=== PATIENT | female | born 1985 | race Caucasian/White ===

== ENCOUNTER 2016-04-02 11:23 | Emergency (ER) | payer OTHER ==
[2016-04-02 12:53] VITALS: BP 137/82
[2016-04-02] MEDS ORDERED: Tetan/Diph/Pertus SYR(Tdap)* 0.5 ML SYR(BOOSTRIX) use SYR IM ONE (13:51)
--- NOTE | 2016-04-02 13:51 | UC ---
Laceration HPI - HPI Summary HPI Summary: 1. WAS UP ON A STOOL CUTTING THE TOP OFF [employer] PLANTS WITH A RAZOR BLADE THIS MORNING WHEN SHE SLIPPED AND LACERATED HER LEFT FOREARM. NOT SURE OF DATE OF LAST TETANUS. 2. C/O THICK, WHITE, MALODOROUS VAGINAL D/C FOR PAST 3-4 YEARS. TOOK DIFLUCAN IN THE PAST WHICH HELPED. DENIES ANY CURRENT SEXUAL ACTIVITY. NO ABDOMINAL PAIN OR URINARY SX. NO FEVER, N/V/D. - History Of Current Complaint Chief Complaint: UCLaceration Stated Complaint: LEFT ARM LACERATION Time Seen by Provider: 04/02/16 13:33 Hx Obtained From: Patient Laceration Location: Arm - LEFT Mechanism Of Injury: Sharp Trauma Onset/Duration: Sudden Onset, Lasting Hours Severity: Mild Pain Intensity: 0 Pain Scale Used: 0-10 Numeric Aggravating Factors: Nothing Related History: Dominant Hand Right - Allergies/Home Medications Allergies/Adverse Reactions: Allergies Allergy/AdvReac Type Severity Reaction Status Date / Time antipsychotics Allergy See Comment Uncoded 12/18/15 09:22 PMH/Surg Hx/FS Hx/Imm Hx Endocrine History Of: Denies: Diabetes, Thyroid Disease, Hyperthyroidism, Hypothyroidism, Dyslipidemia Cardiovascular History Of: Denies: Cardiac Disorders, Hypertension, Pacemaker/ICD, Myocardial Infarction , Congestive Heart Failure, Atrial Fibrillation, Deep Vein Thrombosis, Bleeding Disorders Respiratory History Of: Denies: COPD, Asthma, Bronchitis, Pneumonia, Pulmonary Embolism GI/ History Of: Reports: Gastroesophageal Reflux Denies: Ulcer, Gastrointestinal Bleed, Gall Bladder Disease, Kidney Stones, Diverticulitis, Renal Disease, Urosepsis Neurological History Of: Denies: TIA, CVA, Dementia, Seizures, Migraine Psychological History Of: Reports: Depression, Bipolar Disorder - W/ PSYCHOSIS Denies: Anxiety, Schizophrenia, Post Traumatic Stress Disorder Cancer History Of: Denies: Lung Cancer, Colorectal Cancer, Breast Cancer, Prostate Cancer, Cervical Cancer Other History Of: Negative For: HIV, Hepatitis B, Hepatitis C, Anticoagulant Therapy - Surgical History Surgical History: Yes Surgery Procedure, Year, and Place: SPINAL FUSION SURG - AGE 13 - Family History Known Family History: Negative: Cardiac Disease, Hypertension Family History: R & n/C - Social History Alcohol Use: None Substance Use Type: None Smoking Status (MU): Never Smoked Tobacco Have You Smoked in the Last Year: No - Immunization History Most Recent Influenza Vaccination: unknown Most Recent Tetanus Shot: unknown Most Recent Pneumonia Vaccination: never Review of Systems Constitutional: Negative Skin: Other - LACERATION LEFT FOREARM Respiratory: Negative Cardiovascular: Negative Gastrointestinal: Negative Genitourinary: Other - VAGINAL D/C All Other Systems Reviewed And Are Negative: Yes Physical Exam Triage Information Reviewed: Yes Appearance: Well-Appearing, No Pain Distress, Well-Nourished Vital Signs: Initial Vital Signs Temp 97.7 F 04/02/16 12:48 Pulse 113 04/02/16 12:48 Resp 18 04/02/16 12:48 BP 137/82 04/02/16 12:48 Pulse Ox 97 04/02/16 12:48 Vital Signs Reviewed: Yes Eyes: Positive: Conjunctiva Clear ENT: Positive: Hearing grossly normal Neck: Positive: Supple Respiratory: Positive: No respiratory distress, No accessory muscle use Cardiovascular: Positive: Pulses Normal Abdomen Description: Positive: Nontender, Soft Musculoskeletal: Positive: No Edema Neurological: Positive: Alert Psychological: Positive: Age Appropriate Behavior Skin: Positive: Other - 2CM LINEAR LACERATION LEFT FOREARM. Negative: rashes UC Physical Exam Vital Signs On Initial Exam: Initial Vitals Temp Pulse Resp BP Pulse Ox 97.7 F 113 18 137/82 97 04/02/16 12:48 04/02/16 12:48 04/02/16 12:48 04/02/16 12:48 04/02/16 12:48 - Genitalia Exam Female Genitourinary: Normal External Exam, Genitalia without Lesions/Masses, Other - THIN, FROTHY, MONTALVO/WHITE VAGINAL DISCHARGE. NO CMT OR ADNEXAL TENDERNESS Laceration Repair - Laceration Repair 1 Description: Linear Laceration Size After Repair: Length (cm) - 2CM, Width (mm) - 0MM, Depth (mm) - 1MM Modified For Repair: No Irrigation With Pressure Irrigation Device: Yes Closure Material: SteriStrips Laceration Course/Dx - Differential Dx - Laceration/Wound Provider Diagnoses: 1. LACERATION. 2. TDAP BOOSTER. 3. VAGINITIS Discharge - Discharge Plan Condition: Stable Disposition: HOME Prescriptions: Metronidazole [Flagyl 500 MG TAB] 500 mg PO BID #14 tab Patient Education Materials: Laceration (ED), Vaginitis (ED), Steristrips (ED) Referrals: Tien Pete MD [Medical Doctor] - If Needed Additional Instructions: FOLLOW-UP WITH PLANNED PARENT[facility]OD OR UNIT AID NEEDED CALL THE NUMBER BELOW FOR ASSISTANCE IN ESTABLISHING WITH A PCP An additional resource available to assist in finding the appropriate physician for your health care needs is the [facility] ([facility]). You may contact them by calling [phone]. WE WILL TREAT YOU FOR BACTERIAL VAGINOSIS BASED ON YOUR CLINICAL PRESENTATION. WE HAVE SWABBED YOU FOR BV, YEAST AND TRICHOMONAS WELL GONORRHEA AND CHLAMYDIA TODAY. TETANUS IMMUNIZATION GIVEN: You have been given an immunization against tetanus. Please record this in your records. In general, a booster is needed only once every 10 years. The tetanus shot protects against tetanus or "lockjaw," which is a complication of certain wound infections (the tetanus shot cannot protect against the actual infection). The immunization site may become warm and red due to local reaction. If this occurs, apply warm compresses and take aspirin or ibuprofen to reduce inflammation and discomfort. Return for evaluation if the reaction becomes severe.
[2016-04-02] MEDS ORDERED: Benzoin Compound STICK ONE (14:01)
== END 2016-04-02 14:50 | disposition home or self-care (01) ==
LOC: UCEAST 11:23
DX: S51.812A Laceration without foreign body of left forearm, initial encounter (principal); W27.8XXA Contact with other nonpowered hand tool, initial encounter; Y93.89 Activity, other specified; Y92.9 Unspecified place or not applicable; Z23 Encounter for immunization; N76.0 Acute vaginitis; Z88.8 Allergy status to other drugs, medicaments and biological substances
CPT/HCPCS: 87480; 87491; 87510; 87591; 87661; 90471; 90715; 99211; G0463

== ENCOUNTER 2016-04-02 11:32 | Emergency (ER) | payer OTHER ==
--- NOTE | 2016-04-02 16:38 | UC ---
Complaint Female HPI - HPI Summary HPI Summary: C/O THICK, WHITE, MALODOROUS VAGINAL D/C FOR PAST 3-4 YEARS. TOOK DIFLUCAN IN THE PAST WHICH HELPED. DENIES ANY CURRENT SEXUAL ACTIVITY. NO ABDOMINAL PAIN OR URINARY SX. NO FEVER, N/V/D. USES SOAP AND WATER TO WASH INSIDE VAGINA DAILY. - History Of Current Complaint Stated Complaint: PERSONAL Hx Obtained From: Patient Hx Last Menstrual Period: 03/17/16 Onset/Duration: Gradual Onset, Still Present Timing: Constant Severity Initially: Moderate Severity Currently: Moderate Pain Intensity: 0 Pain Scale Used: 0-10 Numeric Character: Burning Aggravating Factor(s): Nothing Alleviating Factor(s): Nothing Associated Signs And Symptoms: Positive: Vaginal Discharge. Negative: Fever, Back Pain, Vaginal Bleeding/Discharge, Nausea, Vomiting(# Of Episodes =), Genital Swelling, Genital Blisters - Allergies/Home Medications Allergies/Adverse Reactions: Allergies Allergy/AdvReac Type Severity Reaction Status Date / Time antipsychotics Allergy See Comment Uncoded 12/18/15 09:22 PMH/Surg Hx/FS Hx/Imm Hx Endocrine History Of: Denies: Diabetes, Thyroid Disease, Hyperthyroidism, Hypothyroidism, Dyslipidemia Cardiovascular History Of: Denies: Cardiac Disorders, Hypertension, Pacemaker/ICD, Myocardial Infarction , Congestive Heart Failure, Atrial Fibrillation, Deep Vein Thrombosis, Bleeding Disorders Respiratory History Of: Denies: COPD, Asthma, Bronchitis, Pneumonia, Pulmonary Embolism GI/ History Of: Reports: Gastroesophageal Reflux Denies: Ulcer, Gastrointestinal Bleed, Gall Bladder Disease, Kidney Stones, Diverticulitis, Renal Disease, Urosepsis Neurological History Of: Denies: TIA, CVA, Dementia, Seizures, Migraine Psychological History Of: Reports: Depression, Bipolar Disorder - W/ PSYCHOSIS Denies: Anxiety, Schizophrenia, Post Traumatic Stress Disorder Cancer History Of: Denies: Lung Cancer, Colorectal Cancer, Breast Cancer, Prostate Cancer, Cervical Cancer Other History Of: Negative For: HIV, Hepatitis B, Hepatitis C, Anticoagulant Therapy - Surgical History Surgical History: Yes Surgery Procedure, Year, and Place: SPINAL FUSION SURG - AGE 13 - Family History Known Family History: Negative: Cardiac Disease, Hypertension Family History: R & n/C - Social History Alcohol Use: None Substance Use Type: None Smoking Status (MU): Never Smoked Tobacco Have You Smoked in the Last Year: No - Immunization History Most Recent Influenza Vaccination: unknown Most Recent Tetanus Shot: unknown Most Recent Pneumonia Vaccination: never Review of Systems Constitutional: Negative Respiratory: Negative Cardiovascular: Negative Gastrointestinal: Negative Genitourinary: Other - VAGINAL DISCHARGE All Other Systems Reviewed And Are Negative: Yes Physical Exam Triage Information Reviewed: Yes Appearance: Well-Appearing, No Pain Distress, Well-Nourished Vital Signs Reviewed: Yes Eyes: Positive: Conjunctiva Clear ENT: Positive: Hearing grossly normal Neck: Positive: Supple Respiratory: Positive: No respiratory distress, No accessory muscle use Cardiovascular: Positive: No Murmur Abdomen Description: Positive: Nontender, Soft Musculoskeletal: Positive: No Edema Neurological: Positive: Alert Psychological: Positive: Age Appropriate Behavior Skin: Negative: rashes UC Physical Exam - Genitalia Exam Female Genitourinary: Normal External Exam, Genitalia without Lesions/Masses, Other - THIN, FROTHY, MONTALVO/WHITE VAGINAL DISCHARGE IN [place]. NO CMT OR ADNEXAL TENDERNESS Complaint Female Dx - Differential Dx/Diagnosis Provider Diagnoses: VAGINITIS Discharge - Discharge Plan Condition: Stable Disposition: HOME Patient Education Materials: Vaginitis (ED) Referrals: Tien Pete MD [Medical Doctor] - Additional Instructions: FOLLOW-UP WITH PLANNED [facility]ENT[facility]OD OR BUTT TRIMMER NEEDED CALL THE NUMBER BELOW FOR ASSISTANCE IN ESTABLISHING WITH A PCP An additional resource available to assist in finding the appropriate physician for your health care needs is the [facility] Referral [facility] ([facility]). You may contact them by calling [phone]. WE WILL TREAT YOU FOR BACTERIAL VAGINOSIS BASED ON YOUR CLINICAL PRESENTATION. METRONIDAZOLE 500MG BY MOUTH TWICE DAILY SENT IN TO [facility]. WE HAVE SWABBED YOU FOR BV, YEAST AND TRICHOMONAS WELL GONORRHEA AND CHLAMYDIA TODAY.
== END 2016-04-02 14:50 | disposition home or self-care (01) ==
LOC: UCEAST 11:32
DX: N76.0 Acute vaginitis (principal); Z88.8 Allergy status to other drugs, medicaments and biological substances
CPT/HCPCS: 99212; G0463